=== PATIENT | female | born 1945 | race Caucasian/White ===

== ENCOUNTER 2021-03-23 09:30 | Outpatient (CLI) | payer OTHER ==
[~2021-03-23 09:30] MED LIST: AMOXICILLIN500 M1 PO; AZITHROMYCIN500 MG PO; CATAFLAM50 MG PO; PROVENTIL3 ML/2.5 M IH; TUSSIONEX PENNKI5 ML PO; ZYNCOF 20-400120 ML PO
== END 2021-03-23 09:48 | disposition home or self-care (01) ==
LOC: MAMO-SONO 09:30
PROVIDERS: ATTEND General Practice
DX: N64.59 Other signs and symptoms in breast (principal); Z12.31 Encounter for screening mammogram for malignant neoplasm of breast; Z87.898 Personal history of other specified conditions

== ENCOUNTER 2022-04-23 12:39 | Emergency (ER) | payer OTHER ==
[~2022-04-23] VITALS: Ht 160 cm; Wt 77.1 kg
[2022-04-23] MEDS ORDERED: SYNTHROID50 MCG PO (13:10)
[2022-04-23] MEDS ORDERED: COZAAR50 MG PO (13:10)
[2022-04-23] MEDS ORDERED: PREVACID30 MG PO (13:10)
[2022-04-23] MEDS ORDERED: MEDROLPACK PO (17:13)
[2022-04-23] MEDS ORDERED: PRILOSEC OTC20 MG PO (17:13)
[2022-04-23] MEDS ORDERED: NORFLEX100MG PO (17:13)
[2022-04-23] MEDS ORDERED: CELEBREX200MG PO (17:13)
== END 2022-04-23 17:19 | disposition home or self-care (01) ==
LOC: ER 12:39
DX: M54.2 Cervicalgia (principal)

== ENCOUNTER 2022-05-23 01:05 | Emergency (ER) | payer OTHER ==
[~2022-05-23] VITALS: Ht 162.6 cm; Wt 77.1 kg
[~2022-05-23 01:05] MED LIST changes: +CELEBREX200MG PO; +COZAAR50 MG PO; +MEDROLPACK PO; +NORFLEX100MG PO; +PREVACID30 MG PO; +PRILOSEC OTC20 MG PO; +SYNTHROID50 MCG PO
[2022-05-23] MEDS ORDERED: CELEBREX200MG PO (04:27)
[2022-05-23] MEDS ORDERED: NORFLEX100MG PO ×2 (04:27→04:28)
== END 2022-05-23 04:42 ==
LOC: ER 01:05
DX: I10 Essential (primary) hypertension (principal); M54.2 Cervicalgia; Z72.0 Tobacco use

== ENCOUNTER 2022-06-01 19:15 | Emergency (ER) | payer OTHER ==
[~2022-06-01] VITALS: Ht 160 cm; Wt 7.7 kg
== END 2022-06-01 23:54 | disposition home or self-care (01) ==
LOC: ER 19:15
DX: T36.0X4A Poisoning by penicillins, undetermined, initial encounter (principal); T36.1X4A Poisoning by cephalosporins and other beta-lactam antibiotics, undetermined, initial encounter; L29.9 Pruritus, unspecified

== ENCOUNTER 2025-09-12 12:18 | Emergency (ER) | payer OTHER ==
[~2025-09-12] VITALS: Ht 157.5 cm; Wt 72.8 kg
[2025-09-12] MEDS ORDERED: BENZONATATE 200 MG CAPSULE PO ONE (13:30)
[2025-09-12] MEDS ORDERED: GUAIFENESIN 100 MG/5 ML BLIST.PACK PO ONE (13:30)
[2025-09-12] MEDS ORDERED: IPRATROPIUM BROMIDE 0.5 MG/2.5 ML AMPUL.NEB IH ONE ×2 (13:30→14:33)
[2025-09-12] MEDS ORDERED: ALBUTEROL SULFATE 3 ML/2.5 MG AMPUL.NEB IH ONE ×2 (13:30→14:33)
[2025-09-12] MEDS ORDERED: GUAIFENESIN/DEXTROMETHORPHAN 100MG/10ML BLIST.PACK PO ONE (13:56)
[2025-09-12 15:36] LABS: COVID-19 AG NEGATIVE (NEGATIVE)
== END 2025-09-12 16:22 | disposition home or self-care (01) ==
LOC: ER 12:18
PROVIDERS: Emergency Medicine
DX: J06.9 Acute upper respiratory infection, unspecified (principal); J40 Bronchitis, not specified as acute or chronic; R05.8 Other specified cough; I10 Essential (primary) hypertension; E03.8 Other specified hypothyroidism; Z88.0 Allergy status to penicillin; Z88.6 Allergy status to analgesic agent; Z20.822 Contact with and (suspected) exposure to COVID-19